=== PATIENT | female | born 1985 | race Caucasian/White ===

== ENCOUNTER 2017-03-16 18:45 | Inpatient (IN) | payer OTHER ==
[2017-03-16 18:51] VITALS: BMI 24.7
--- NOTE | 2017-03-16 18:51 | PDOC ---
Rapid Medical Evaluation Time Seen by Provider: 03/16/17 18:48 Medical Evaluation: Allergies Allergy/AdvReac Type Severity Reaction Status Date / Time No Known Allergies Allergy Verified 06/24/15 21:15 I have performed a brief in-person evaluation of this patient. The patient presents with a chief complaint of: abdominal pain with nausea and vomiting for a few hours Pertinent physical exam findings: LUQ and suprapubic TTP. No rebound, guarding or rigidity. I have ordered the following: hcg, UA The patient will proceed to the ED for further evaluation.
[2017-03-16 19:35] LABS: URINE APPEARANCE CLEAR; URINE BILIRUBIN NEGATIVE (NEGATIVE); URINE BLOOD NEGATIVE (NEGATIVE); URINE COLOR LTYELLOW; URINE GLUCOSE (UA) NEGATIVE (NEGATIVE); URINE KETONE 1+ (NEGATIVE); URINE LEUK ESTERASE NEGATIVE (NEGATIVE); URINE NITRITE NEGATIVE (NEGATIVE); URINE PROTEIN NEGATIVE (NEGATIVE); URINE UROBILINOGEN NEGATIVE E.U./dl (0.2-1.0)
[2017-03-16] MEDS ORDERED: ONDANSETRON 4 MG/2 ML VIAL ONE (19:55)
[2017-03-16] MEDS ORDERED: ONDANSETRON 4 MG/2 ML VIAL IVPUSH ONE (19:57)
[2017-03-16 20:02] LABS: MCH 25.3 pg (25.7-33.7); MCHC 31.6 g/dl (32.0-36.0); MEAN PLT VOLUME 8.2 fl (7.5-11.1); PLATELET COUNT 267 K/MM3 (134-434); RDW 15.3 % (11.6-15.6); WHITE BLOOD COUNT 16.2 K/mm3 (4.0-10.0)
[2017-03-16 20:30] LABS: ALBUMIN 4.1 g/dl (3.4-5.0); ALK PHOS 63 U/L (45-117); ANION GAP 11 (8-16); BILIRUBIN,TOTAL 0.3 mg/dL (0.2-1.0); CALCIUM 9.1 mg/dL (8.5-10.1); CO2 23 mmol/L (21-32); COCKROFT - GAULT 114.5885; CREATININE 0.7 mg/dL (0.55-1.02); GLUCOSE,RANDOM 102 mg/dL (74-106); SGOT/AST 13 U/L (15-37); SGPT/ALT 18 U/L (12-78); TOT PROT 7.3 g/dl (6.4-8.2)
--- NOTE | 2017-03-16 22:10 | PDOC ---
History of Present Illness - General Chief Complaint: Pain Stated Complaint: PAIN, ACUTE Time Seen by Provider: 03/16/17 18:48 History Source: Patient Exam Limitations: No Limitations - History of Present Illness Travel History: No Initial Comments: 03/16/17 22:06 32-year-old female presents to the emergency department with her sister complaining of RLQ abdominal discomfort. Pain is described as 8/10 sharp discomfort radiating to the left side with nausea/vomiting but denies fever/ chills, chest pain, shortness of breath, flank pains, urinary symptoms. There are no alleviating pain and the pain is exacerbated on touch. last meal: x8h ago Timing/Duration: reports: intermittent Abdominal Pain Onset Location: reports: RLQ, LLQ Pain Radiation: reports: no radiation Past History - Past Medical History Allergies/Adverse Reactions: Allergies Allergy/AdvReac Type Severity Reaction Status Date / Time No Known Allergies Allergy Verified 03/16/17 18:50 Home Medications: Ambulatory Orders NK [No Known Home Medication] 03/16/17 Asthma: No Cancer: No Cardiac Disorders: No Diabetes: No HTN: No Seizures: No Thyroid Disease: No - Psycho/Social/Smoking Cessation Hx Suicidal Ideation: No Smoking History: Never smoked Have you smoked in the past 12 months: No Information on smoking cessation initiated: No Hx Alcohol Use: No Drug/Substance Use Hx: No Hx Substance Use Treatment: No Review of Systems - Review of Systems Able to Perform ROS?: Yes Comments:: 03/16/17 22:08 CONSTITUTIONAL: Absent: fever, chills, diaphoresis, generalized weakness, malaise, loss of appetite HEENT: Absent: rhinorrhea, nasal congestion, throat pain, throat swelling, difficulty swallowing, mouth swelling, ear pain, eye pain, visual Changes CARDIOVASCULAR: Absent: chest pain, loss of consciousness, palpitations, irregular heart rate, peripheral edema RESPIRATORY: Absent: cough, shortness of breath, dyspnea with exertion, orthopnea, wheezing, stridor, hemoptysis GASTROINTESTINAL: +RLQ/LLQ pain Absent: abdominal distension, nausea, vomiting, diarrhea, constipation, melena, hematochezia GENITOURINARY: Absent: dysuria, frequency, urgency, hesitancy, hematuria, flank pain, genital pain MUSCULOSKELETAL: Absent: myalgia, arthralgia, joint swelling SKIN: Absent: rash, itching, pallor HEMATOLOGIC/IMMUNOLOGIC: Absent: easy bleeding, easy bruising, lymphadenopathy, frequent infections ENDOCRINE: Absent: unexplained weight gain, unexplained weight loss, heat intolerance, cold intolerance NEUROLOGIC: Absent: headache, focal weakness or paresthesias, dizziness, unsteady gait, seizure, mental status changes, bladder or bowel incontinence PSYCHIATRIC: Absent: anxiety, depression, suicidal or homicidal ideation, hallucinations. Is the patient limited Kinyarwanda proficient: No *Physical Exam - Vital Signs Last Vital Signs Temp Pulse Resp BP Pulse Ox 97.9 F 70 18 126/80 100 03/16/17 18:46 03/16/17 18:46 03/16/17 18:46 03/16/17 18:46 03/16/17 18:46 - Physical Exam Comments: 03/16/17 22:09 GENERAL: Well developed, well nourished. Awake and alert. No acute distress. HEENT: Normocephalic, atraumatic. PERRLA, EOMI. No conjunctival pallor. Sclera are non- icteric. Moist mucous membranes. Oropharynx is clear. NECK: Supple. Full ROM. No JVD. Carotid pulses 2+ and symmetric, without bruits. No thyromegaly. No lymphadenopathy. CARDIOVASCULAR: Regular rate and rhythm. No murmurs, rubs, or gallops. Distal pulses are 2+ and symmetric. PULMONARY: No evidence of respiratory distress. Lungs clear to auscultation bilaterally. No wheezing, rales or rhonchi. ABDOMINAL: +RLQ>LLQ pain on light palp Soft. Non-distended. No rebound or guarding. No organomegaly. Normoactive bowel sounds. MUSCULOSKELETAL Normal range of motion at all joints. No bony deformities or tenderness. No CVA tenderness. EXTREMITIES: No cyanosis. No clubbing. No edema. No calf tenderness. SKIN: Warm and dry. Normal capillary refill. No rashes. No jaundice. NEUROLOGICAL: Alert, awake, appropriate. Cranial nerves 2-12 intact. No deficits to light touch and temperature in face, upper extremities and lower extremities. No motor deficits in the in face, upper extremities and lower extremities. Normoreflexic in the upper and lower extremities. Normal speech. Toes are down- going bilaterally. Gait is normal without ataxia. PSYCHIATRIC: Cooperative. Good eye contact. Appropriate mood and affect. ED Treatment Course - LABORATORY CBC & Chemistry Diagram: 03/16/17 19:47 03/16/17 19:47 - ADDITIONAL ORDERS Additional order review: Laboratory Results 03/16/17 03/16/17 19:47 19:00 Sodium 139 Potassium 3.6 Chloride 105 Carbon Dioxide 23 Anion Gap 11 BUN 11 Creatinine 0.7 Creat Clearance w eGFR > 60 Random Glucose 102 D Calcium 9.1 Total Bilirubin 0.3 AST 13 L ALT 18 Alkaline Phosphatase 63 Total Protein 7.3 Albumin 4.1 Lipase 139 Urine Color Ltyellow Urine Appearance Clear Urine pH 6.0 Urine Protein Negative Urine Glucose (UA) Negative Urine Ketones 1+ H Urine Blood Negative Urine Nitrite Negative Urine Bilirubin Negative Urine Urobilinogen Negative Ur Leukocyte Esterase Negative Urine HCG, Qual Negative 03/16/17 19:47 RBC 4.88 D MCV 80.0 MCHC 31.6 L RDW 15.3 MPV 8.2 Neutrophils % Y Lymphocytes % Y - RADIOLOGY Radiology Studies Ordered: Category Date Time Status ABDOMEN & PELVIS CT WITH CONTR [CT] Stat CT Scan 03/16/17 21:00 Ordered - Medications Given in the ED: ED Medications Discontinued Medications Generic Name Dose Route Start Last Admin Trade Name Freq PRN Reason Stop Dose Admin Ondansetron HCl 4 mg 03/16/17 19:57 03/16/17 19:57 Zofran Injection IVPUSH 03/16/17 19:58 4 mg NOW ONE Administration Progress Note - Progress Note Progress Note: 0001hrs: Called DR. Luis New/surgery injection molding engineer 0018hrs: Spoke to Dr. Reeves/surgery injection molding engineer/ advise to admit to hospitalist. Surgery will be done in the am *DC/Admit/Observation/Transfer Diagnosis at time of Disposition: Acute appendicitis Qualifiers: Acute appendicitis type: with localized peritonitis Qualified Code(s): K35.3 - Acute appendicitis with localized peritonitis - Discharge Dispostion Condition at time of disposition: Guarded Admit: Yes
[2017-03-16 22:15] LABS: PLATELET ESTIMATE ADEQUATE (NORMAL)
[2017-03-17] MEDS ORDERED: CEFAZOLIN 1 GM in DEXTROSE 5%-WATER - 50 ML IVPB ONE (00:15)
[2017-03-17] MEDS ORDERED: SODIUM CHLORIDE 1,000 ML IV STA (00:16)
[2017-03-17] MEDS ORDERED: METRONIDAZOLE 500 MG PREMIXED 100 ML IVPB ONE (00:16)
[2017-03-17] MEDS ORDERED: PIPERACILLIN/TAZOB 3.375 GM 3.375 GM in DEXTROSE 5%-WATER - 50 ML IVPB ONE (00:18)
[2017-03-17] MEDS ORDERED: morphine CARPU-JECT 2 MG/1 ML DISP.SYRIN IVPUSH PRN (00:42)
--- NOTE | 2017-03-17 00:50 | PDOC ---
*Physical Exam - Vital Signs Last Vital Signs Temp Pulse Resp BP Pulse Ox 97.9 F 70 18 126/80 100 03/16/17 18:46 03/16/17 18:46 03/16/17 18:46 03/16/17 18:46 03/16/17 18:46 ED Treatment Course - LABORATORY CBC & Chemistry Diagram: 03/16/17 19:47 03/16/17 19:47 - ADDITIONAL ORDERS Additional order review: Laboratory Results 03/16/17 03/16/17 19:47 19:00 Sodium 139 Potassium 3.6 Chloride 105 Carbon Dioxide 23 Anion Gap 11 BUN 11 Creatinine 0.7 Creat Clearance w eGFR > 60 Random Glucose 102 D Calcium 9.1 Total Bilirubin 0.3 AST 13 L ALT 18 Alkaline Phosphatase 63 Total Protein 7.3 Albumin 4.1 Lipase 139 Urine Color Ltyellow Urine Appearance Clear Urine pH 6.0 Ur Specific [place] 1.025 Urine Protein Negative Urine Glucose (UA) Negative Urine Ketones 1+ H Urine Blood Negative Urine Nitrite Negative Urine Bilirubin Negative Urine Urobilinogen Negative Ur Leukocyte Esterase Negative Urine HCG, Qual Negative 03/16/17 19:47 RBC 4.88 D MCV 80.0 MCHC 31.6 L RDW 15.3 MPV 8.2 Neutrophils % 90.0 H Lymphocytes % 5.0 L D Monocytes % 1.0 L D Basophils % 1.0 D - Medications Given in the ED: ED Medications Discontinued Medications Generic Name Dose Route Start Last Admin Trade Name Freq PRN Reason Stop Dose Admin Ondansetron HCl 4 mg 03/16/17 19:57 03/16/17 19:57 Zofran Injection IVPUSH 03/16/17 19:58 4 mg NOW ONE Administration Medical Decision Making - Medical Decision Making 03/17/17 00:49 agree with care from MICKEY Mancilla *DC/Admit/Observation/Transfer Diagnosis at time of Disposition: Acute appendicitis Qualifiers: Acute appendicitis type: with localized peritonitis Qualified Code(s): K35.3 - Acute appendicitis with localized peritonitis - Discharge Dispostion Condition at time of disposition: Guarded
--- NOTE | 2017-03-17 01:04 | PN ---
<Rhonda Martin - Last Filed: 03/17/17 01:03> Teaching Attending Note Name of Resident: Rene Berman ATTENDING PHYSICIAN STATEMENT I saw and evaluated the patient. I reviewed the resident's note and discussed the case with the resident. I agree with the resident's findings and plan as documented. SUBJECTIVE: OBJECTIVE: ASSESSMENT AND PLAN: <Palmer Lindseyke - Last Filed: 03/17/17 01:30> Teaching Attending Note ATTENDING PHYSICIAN STATEMENT I saw and evaluated the patient. I reviewed the resident's note and discussed the case with the resident. I agree with the resident's findings and plan as documented. SUBJECTIVE: The patient is a 32-year-old female with no past medical history who presented to the emergency complaining of right lower quadrant abdominal pain. The patient described her pain as 9/10 in severity, sharp, and radiating to the left side with associated nausea/vomiting but denied any fever/chills, chest pain, shortness of breath, flank pains, or urinary symptoms. OBJECTIVE: Last Vital Signs 3 Temp Pulse Resp BP Pulse Ox 97.9 F 70 18 126/80 100 03/16/17 18:46 03/16/17 18:46 03/16/17 18:46 03/16/17 18:46 03/16/17 18:46 Physical Exam: GEN: NAD HEENT: NCAT, PERRL CARD: RRR, S1 S2 RESP: CTAB ABD: (+) Tenderness of McBurneys point on palpation , BWS x4 EXT: - CCE Labs: CBCD 3 WBC 16.2 K/mm3 (4.0-10.0) H D 03/16/17 19:47 RBC 4.88 M/mm3 (3.60-5.2) D 03/16/17 19:47 Hgb 12.4 GM/dL (10.7-15.3) D 03/16/17 19:47 Hct 39.1 % (32.4-45.2) D 03/16/17 19:47 MCV 80.0 fl (80-96) 03/16/17 19:47 MCHC 31.6 g/dl (32.0-36.0) L 03/16/17 19:47 RDW 15.3 % (11.6-15.6) 03/16/17 19:47 Plt Count 267 K/MM3 (134-434) D 03/16/17 19:47 MPV 8.2 fl (7.5-11.1) 03/16/17 19:47 CMP 3 Sodium 139 mmol/L (136-145) 03/16/17 19:47 Potassium 3.6 mmol/L (3.5-5.1) 03/16/17 19:47 Chloride 105 mmol/L (98-107) 03/16/17 19:47 Carbon Dioxide 23 mmol/L (21-32) 03/16/17 19:47 Anion Gap 11 (8-16) 03/16/17 19:47 BUN 11 mg/dL (7-18) 03/16/17 19:47 Creatinine 0.7 mg/dL (0.55-1.02) 03/16/17 19:47 Creat Clearance w eGFR > 60 (>60) 03/16/17 19:47 Calcium 9.1 mg/dL (8.5-10.1) 03/16/17 19:47 Total Bilirubin 0.3 mg/dL (0.2-1.0) 03/16/17 19:47 AST 13 U/L (15-37) L 03/16/17 19:47 ALT 18 U/L (12-78) 03/16/17 19:47 Alkaline Phosphatase 63 U/L (45-117) 03/16/17 19:47 Total Protein 7.3 g/dl (6.4-8.2) 03/16/17 19:47 Albumin 4.1 g/dl (3.4-5.0) 03/16/17 19:47 Imaging: EXAM#: TYPE/EXAM: RESULT: [id number] CT/ABDOMEN PELVIS CT WITH CONTR Abdominal pain. Rule out appendicitis CT scan of the abdomen and pelvis following oral and intravenous contrast. Coronal and sagittal reformatted images were obtained 80 cc of Omnipaque 350 was intravenously injected Comparison: None available Visualized lung base appears unremarkable and the heart is within normal limits in size. Evaluation of the liver, spleen, pancreas, gallbladder, both adrenal glands and both kidneys appear unremarkable. Partially distended stomach without wall thickening. There is no evidence of small bowel obstruction. The appendix is thickened measuring 12 mm in AP dimension at its base with minimal surrounding stranding best visualized on the coronal reformatted images consistent with early acute appendicitis. No surrounding extraluminal air or abscess formation is identified. Normal stool burden in the colon without wall thickening. Normal size uterus. There is a small amount of free fluid in the cul -de-sac. Peripherally enhancing cystic density in the left adnexa measuring 2 x 1.1 cm likely representing a partially ruptured left ovarian cyst . Visualized osseous structures appear intact. Impression Thickening of the appendix measuring 12 mm in diameter at its base with minimal surrounding stranding, best visualized on the coronal reformatted images consistent with early acute appendicitis without evidence of perforation. No extraluminal air or abscess formation is identified. Peripheral enhancement of a cystic density in the left ovary/adnexa measuring 2 x 1.1 cm likely representing a partially ruptured left ovarian cyst with a small amount of free fluid in the cul-de -sac. Correlation with pelvis ultrasound could be obtained for further evaluation Reported By: Ace Villa MD 03/17/17 0000 ASSESSMENT AND PLAN: 32-year-old female with no past medical history who presented with right lower quadrant abdominal pain. Found to have early acute appendicitis on CT 1. Acute appendicitis - NPO - IVF - Type and screen - Coag - Surgical consult - Zosin - ID for approval 2. DVT PPX- low risk - SCDs Admit to med surg. Documentation prepared by Aditya Lindsey, acting as bilingual medical receptionist for Dr. Rhonda Martin MD.
[2017-03-17] MEDS ORDERED: ONDANSETRON 4 MG/2 ML VIAL IVPUSH PRN ×2 (01:08→15:19)
[2017-03-17] MEDS ORDERED: LACTATED RINGERS SOLUTION 1,000 ML IV SCH ×2 (01:15→15:00)
--- NOTE | 2017-03-17 01:49 | HP ---
CHIEF COMPLAINT: PCP: HISTORY OF PRESENT ILLNESS: 32YF with no sig PMH presents to ED with c/o of abdominal pain. bilateral lower abdominal sharp pain started yesterday afternoon at approximatly 3pm,pain is constant and progressive 8/10 radating and Moved to LUQ. associated symptoms reports vomited NBNB x4, 2 in ED. never had marcus type of pain before. she also complains of chills but no fevers. no sick contacts. She denies fever, diaphoresis, generalized weakness. She denies chest pain, shortness of breath, cough She denies diarrhea, dysuria, hematuria, urinary frequency and urgency, flank pain, vaginal discharge/vaginal bleeding ER course was notable for: (1)zofran (2) CT abd (3)zosyn Recent Travel: no PAST MEDICAL HISTORY: no PAST SURGICAL HISTORY: no Social History: Smoking:no Alcohol:no Drugs: no Family History: non contributory Allergies No Known Allergies Allergy (Verified 03/16/17 18:50) HOME MEDICATIONS: Home Medications Medication Instructions Recorded NK [No Known Home Medication] 03/16/17 REVIEW OF SYSTEMS CONSTITUTIONAL: chills, Absent: fever, diaphoresis, generalized weakness, malaise, loss of appetite, weight change HEENT: Absent: rhinorrhea, nasal congestion, throat pain, throat swelling, difficulty swallowing, mouth swelling, ear pain, eye pain, visual changes CARDIOVASCULAR: Absent: chest pain, syncope, palpitations, irregular heart rate, lightheadedness , peripheral edema RESPIRATORY: Absent: cough, shortness of breath, dyspnea with exertion, orthopnea, wheezing, stridor, hemoptysis GASTROINTESTINAL:bdominal pain,nausea, vomiting, Absent: a abdominal distension, diarrhea, constipation, melena, hematochezia GENITOURINARY: Absent: dysuria, frequency, urgency, hesitancy, hematuria, flank pain, genital pain MUSCULOSKELETAL: Absent: myalgia, arthralgia, joint swelling, back pain, neck pain SKIN: Absent: rash, itching, pallor HEMATOLOGIC/IMMUNOLOGIC: Absent: easy bleeding, easy bruising, lymphadenopathy, frequent infections ENDOCRINE: Absent: unexplained weight gain, unexplained weight loss, heat intolerance, cold intolerance NEUROLOGIC: Absent: headache, focal weakness or paresthesias, dizziness, unsteady gait, seizure, mental status changes, bladder or bowel incontinence PSYCHIATRIC: Absent: anxiety, depression, suicidal or homicidal ideation, hallucinations. PHYSICAL EXAMINATION GENERAL: Awake, alert, and fully oriented, in no acute distress. sitting up comfortably HEAD: Normal with no signs of trauma. EYES: extraocular movements intact, sclera anicteric, conjunctiva clear. No lid lag. EARS, NOSE, THROAT: Ears normal, nares patent, oropharynx clear without exudates. Moist mucous membranes. NECK: Normal range of motion, supple without lymphadenopathy, JVD, or masses. LUNGS: Breath sounds equal, clear to auscultation bilaterally. No wheezes, and no crackles. No accessory muscle use. HEART: Regular rate and rhythm, normal S1 and S2 without murmur, rub or gallop. ABDOMEN: Soft, mild tenderness lower abd, not distended, normoactive bowel sounds, no guarding, no rebound, no masses. obturator sign negative. No hepatomegaly or splenomegaly. MUSCULOSKELETAL: Normal range of motion at all joints. No bony deformities or tenderness. No CVA tenderness. LOWER EXTREMITIES: 2+ pulses, warm, well-perfused. No calf tenderness. No peripheral edema. NEUROLOGICAL: Cranial nerves II-XII intact. Normal speech. Normal gait. PSYCHIATRIC: Cooperative. Good eye contact. Appropriate mood and affect. SKIN: Warm, dry, normal turgor, no rashes or lesions noted, normal capillary refill. Impression Thickening of the appendix measuring 12 mm in diameter at its base with minimal surrounding stranding, best visualized on the coronal reformatted images consistent with early acute appendicitis without evidence of perforation. No extraluminal air or abscess formation is identified. Peripheral enhancement of a cystic density in the left ovary/adnexa measuring 2 x 1.1 cm likely representing a partially ruptured left ovarian cyst with a small amount of free fluid in the cul-de -sac. Correlation with pelvis ultrasound could be obtained for further evaluation ASSESSMENT/PLAN: 32YF with no sig PMH presents to ED with c/o of abdominal pain. found to have acute appendicitis on ct scan. 1. Acute appendicitis - Type and screen - Coag - Type and screen - Surgical consult- presumptive suregery in am - continue Zosin - ID consult 2. DVT PPX- low risk - SCDs FEN NPU replete electrolyte as needed IV LR @ 100cc/hr Dispo: med surg presumptive surgery in am. Visit type - Emergency Visit Emergency Visit: Yes ED Registration Date: 03/17/17 Care time: The patient presented to the Emergency Department on the above date and was hospitalized for further evaluation of their emergent condition. - New Patient This patient is new to me today: Yes Date on this admission: 03/17/17 - Critical Care Critical Care patient: No
[2017-03-17] MEDS: PIPERACILLIN/TAZOB 3.375 GM/50 ML PRE-DOCKED IVPB ONE ×2 (06:47→15:45)
[2017-03-17 07:34] LABS: BASOPHIL 0.3 % (0-2.0); EOSINOPHIL 0.4 % (0-4.5); MCH 26.2 pg (25.7-33.7); MCHC 33.1 g/dl (32.0-36.0); MEAN CELL VOLUME 79.3 fl (80-96); MEAN PLT VOLUME 8.3 fl (7.5-11.1); NEUTROPHILS 76.6 % (42.8-82.8); PLATELET COUNT 235 K/MM3 (134-434); RDW 15.2 % (11.6-15.6); WHITE BLOOD COUNT 11.9 K/mm3 (4.0-10.0)
[2017-03-17 07:51] LABS: ALBUMIN 3.4 g/dl (3.4-5.0); ALK PHOS 56 U/L (45-117); ANION GAP 10 (8-16); BILIRUBIN,TOTAL 0.7 mg/dL (0.2-1.0); CALCIUM 8.4 mg/dL (8.5-10.1); CO2 25 mmol/L (21-32); CREATININE 0.7 mg/dL (0.55-1.02); GLUCOSE,RANDOM 84 mg/dL (74-106); MAGNESIUM 2.4 mg/dL (1.8-2.4); PHOSPHOROUS 3.8 mg/dL (2.5-4.9); SGOT/AST 10 U/L (15-37); SGPT/ALT 15 U/L (12-78); TOT PROT 6.2 g/dl (6.4-8.2)
[2017-03-17 08:11] LABS: INR 1.25 (0.82-1.09); PROTHROMBIN TIME (PATIENT) 13.8 SEC (9.98-11.88)
--- NOTE | 2017-03-17 12:37 | EKG ---
Test Reason : Blood Pressure : / mmHG Vent. Rate : 073 BPM Atrial Rate : 073 BPM P-R Int : 184 ms QRS Dur : 076 ms QT Int : 376 ms P-R-T Axes : 047 036 015 degrees QTc Int : 414 ms NORMAL SINUS RHYTHM NORMAL ECG NO PREVIOUS ECGS AVAILABLE Confirmed by MAINE ANDREW MD ([id number]) on 03/17/2017 12:36:29 PM Referred By: DOUG ARRIAGA Confirmed By:MAINE ANDREW MD
[2017-03-17] MEDS ORDERED: PROPOFOL 20 ML ONE (13:31)
[2017-03-17] MEDS ORDERED: ROCURONIUM BROMIDE 50 MG/5 ML VIAL ONE (13:31)
[2017-03-17] MEDS ORDERED: MIDAZOLAM HCL 2 MG/2 ML SINGLE DOSE VIAL ONE (13:31)
[2017-03-17] MEDS ORDERED: SUCCINYLCHOLINE CHLORIDE 200 MG/10 ML VIAL ONE (13:31)
--- NOTE | 2017-03-17 13:55 | PN ---
Progress Note (short form) - Note Progress Note: surgery pt seen and examined. full consult dictated. 32f with abd pain, n/v, leukocytosis and ct showing acute appendicitis. Pt admitted with iv zosyn and feels better. on exam pt has localized rlq tenderness with rebound. Plan- clinically acute appendicitis with localized peritonitis. will proceed with surgery. agree with zosyn but may need to change to rocephin/flagyl because of abx restrictions.
[2017-03-17] MEDS ORDERED: KETOROLAC TROMETHAMINE 30 MG/1 ML VIAL ONE (14:01)
[2017-03-17] MEDS ORDERED: DEXAMETHASONE SOD PHOSPHATE 4 MG/1 ML VIAL ONE (14:01)
[2017-03-17] MEDS ORDERED: NEOSTIGMINE METHYLSULFATE 0.5 MG/ML - 10 ML MDV ONE (14:29)
[2017-03-17] MEDS ORDERED: GLYCOPYRROLATE 0.2 MG/1 ML VIAL ONE (14:29)
--- NOTE | 2017-03-17 14:36 | OP ---
Operative Note - Note: Operative Date: 03/17/17 Pre-Operative Diagnosis: acute appendicitis Operation: laparoscopic appendectomy, lavage Findings: thickened, inflamed, nonperforated appendix Post-Operative Diagnosis: Same as Pre-op Surgeon: Omar Reeves Anesthesiologist/LATHE PULLER: German Grayson Anesthesia: General Specimens Removed: appendix Estimated Blood Loss (mls): 10
[2017-03-17] MEDS ORDERED: ACETAMINOPHEN 325 MG TABLET (FP) PO PRN (14:45)
[2017-03-17] MEDS ORDERED: oxyCODONE HCL 5 MG TABLET PO PRN (14:45)
[2017-03-17] MEDS ORDERED: morphine CARPU-JECT 10 MG/1 ML DISP.SYRIN IVPB PRN (14:45)
[2017-03-17] MEDS ORDERED: KETOROLAC TROMETHAMINE 30 MG/1 ML VIAL IVPUSH PRN (14:45)
[2017-03-17] MEDS ORDERED: PROMETHAZINE HCL 25 MG/1 ML VIAL IVPUSH PRN (14:47)
[2017-03-17] MEDS ORDERED: ONDANSETRON 4 MG/2 ML VIAL ONE (14:54)
[2017-03-17] MEDS ORDERED: PIPERACILLIN/TAZOB 3.375 GM 50 ML IVPB ONE (15:30)
--- NOTE | 2017-03-17 15:42 | PN ---
Physical Exam: SUBJECTIVE: Patient seen and examined prior to lap appendectomy. She said pain was under control and waiting for surgery. No fever, chills, n/v, acute abd pain. OBJECTIVE: Vital Signs Period Temp Pulse Resp BP Sys/Pompa Pulse Ox Last 24 Hr 98.1 F-99.8 F 68-80 16-18 97-109/50-65 98-99 GENERAL: The patient is awake, alert, and fully oriented, in no acute distress. LUNGS: Breath sounds equal, clear to auscultation bilaterally, no wheezes, no crackles, no accessory muscle use. HEART: Regular rate and rhythm, S1, S2 without murmur, rub or gallop. ABDOMEN (Prior to procedure): Soft, nondistended, normoactive bowel sounds, rebound tenderness in RLQ, +rovsing sign but -obutorator sign EXTREMITIES: no edema. CBCD WBC 11.9 K/mm3 (4.0-10.0) H 03/17/17 06:30 RBC 4.38 M/mm3 (3.60-5.2) 03/17/17 06:30 Hgb 11.5 GM/dL (10.7-15.3) 03/17/17 06:30 Hct 34.8 % (32.4-45.2) 03/17/17 06:30 MCV 79.3 fl (80-96) L 03/17/17 06:30 MCHC 33.1 g/dl (32.0-36.0) 03/17/17 06:30 RDW 15.2 % (11.6-15.6) 03/17/17 06:30 Plt Count 235 K/MM3 (134-434) 03/17/17 06:30 MPV 8.3 fl (7.5-11.1) 03/17/17 06:30 CMP Sodium 142 mmol/L (136-145) 03/17/17 06:30 Potassium 3.7 mmol/L (3.5-5.1) 03/17/17 06:30 Chloride 107 mmol/L (98-107) 03/17/17 06:30 Carbon Dioxide 25 mmol/L (21-32) 03/17/17 06:30 Anion Gap 10 (8-16) 03/17/17 06:30 BUN 7 mg/dL (7-18) D 03/17/17 06:30 Creatinine 0.7 mg/dL (0.55-1.02) 03/17/17 06:30 Creat Clearance w eGFR > 60 (>60) 03/17/17 06:30 Calcium 8.4 mg/dL (8.5-10.1) L 03/17/17 06:30 Total Bilirubin 0.7 mg/dL (0.2-1.0) D 03/17/17 06:30 AST 10 U/L (15-37) L D 03/17/17 06:30 ALT 15 U/L (12-78) 03/17/17 06:30 Alkaline Phosphatase 56 U/L (45-117) 03/17/17 06:30 Total Protein 6.2 g/dl (6.4-8.2) L 03/17/17 06:30 Albumin 3.4 g/dl (3.4-5.0) 03/17/17 06:30 Active Medications Generic Name Dose Route Start Last Admin Trade Name Freq PRN Reason Stop Dose Admin Acetaminophen 650 mg 03/17/17 14:45 Tylenol - PO Q4H PRN FEVER OR PAIN Enoxaparin Sodium 40 mg 03/18/17 10:00 Lovenox - SQ DAILY DARIUSZ Pantoprazole Sodium 100 mls @ 200 mls/hr 03/18/17 10:00 Protonix 40mg Ivpb (Pre-Docked) IVPB DAILY DARIUSZ Lactated Ringer's 1,000 mls @ 75 mls/hr 03/17/17 15:00 Lactated Ringers Solution IV ASDIR DARIUSZ Piperacillin Sod/Tazobactam Sod 50 mls @ 100 mls/hr 03/17/17 21:00 Zosyn 3.375gm Ivpb (Pre-Docked) IVPB Q6H-IV DARIUSZ Protocol Piperacillin Sod/Tazobactam Sod 50 mls @ 100 mls/hr 03/17/17 15:30 Zosyn 3.375gm Ivpb (Pre-Docked) IVPB 03/17/17 15:59 ONCE ONE Protocol Lactated Ringer's 1,000 mls @ 100 mls/hr 03/17/17 15:19 Lactated Ringers Solution IV ASDIR DARIUSZ Ketorolac Tromethamine 30 mg 03/17/17 14:45 Toradol Injection - IVPUSH 03/17/17 22:46 Q8H PRN PAIN Morphine Sulfate 8 mg 03/17/17 14:45 Morphine Injection - IVPB Q3H PRN PAIN Ondansetron HCl 4 mg 03/17/17 15:19 Zofran Injection IVPUSH Q8H PRN NAUSEA Oxycodone HCl 7.5 mg 03/17/17 14:45 Roxicodone - PO Q4H PRN PAIN IMAGING CT abd on 03/17: early acute appendicitis and partially rupture L ovarian cyst. ASSESSMENT/PLAN: 32 yo F admitted to med-surg for acute appendicitis. Acute appendicitis, uncomplicated - s/p lap cholecystectomy - Lactate Ringers - Cont. zosyn - Morphine and ketorolac for pain control - Zofran for n/v FEN - LR - Lytes normal - Regular diet Prophylaxis - DVT: lovenox - GI: protonix Dispo - Discharge tomorrow Visit type - Emergency Visit Emergency Visit: No - New Patient This patient is new to me today: No - Critical Care Critical Care patient: No
--- NOTE | 2017-03-17 16:45 | CONSULT ---
Consult Consult Specialty:: infectious diseases Reason for Consultation:: appendicitis - History of Present Illness Chief Complaint: abd pain History of Present Illness: 32 y/o female with no specific medical problem was admitted with abd pain and she was worked up and found to have appendicitis patient was evaluated by surgery and taken to the operating room and now is post op main issue now is pain patient had lap appendctomy done - History Source History Provided By: Patient, Medical Record Limitations to Obtaining History: Language Barrier - Past Medical History Rheumatology: Yes: Rheumatoid Arthritis (juvenile) - Past Surgical History Past Surgical History: Yes: None - Alcohol/Substance Use Hx Alcohol Use: No History of Substance Use: reports: None - Smoking History Smoking history: Never smoked Have you smoked in the past 12 months: No Home Medications - Allergies Allergies/Adverse Reactions: Allergies Allergy/AdvReac Type Severity Reaction Status Date / Time No Known Allergies Allergy Verified 03/16/17 18:50 - Home Medications Home Medications: Ambulatory Orders NK [No Known Home Medication] 03/16/17 Family Disease History - Family Disease History Family Disease History: Other: Father (prostate cancer) Review of Systems - Review of Systems Constitutional: reports: No Symptoms Eyes: reports: No Symptoms HENT: reports: No Symptoms Neck: reports: No Symptoms Cardiovascular: reports: No Symptoms Respiratory: reports: No Symptoms Gastrointestinal: reports: Abdominal Pain Genitourinary: reports: No Symptoms Neurological: reports: No Symptoms Endocrine: reports: No Symptoms Hematology/Lymphatic: reports: No Symptoms Psychiatric: reports: No Symptoms Physical Exam Vital Signs: Vital Signs Temperature 98.7 F 03/17/17 16:10 Pulse Rate 56 L 03/17/17 16:10 Respiratory Rate 18 03/17/17 16:10 Blood Pressure 97/60 03/17/17 16:10 O2 Sat by Pulse Oximetry (%) 100 03/17/17 16:10 Constitutional: Yes: Well Nourished, Mild Distress (post op) HENT: Yes: Atraumatic Neck: Yes: Supple, Trachea Midline Cardiovascular: Yes: Regular Rate and Rhythm Respiratory: Yes: Regular, CTA Bilaterally Gastrointestinal: Yes: Soft, Hypoactive Bowel Sounds, Other (surgical site looks good) Musculoskeletal: Yes: WNL Extremities: Yes: WNL Neurological: Yes: Alert, Oriented Psychiatric: Yes: Alert Labs: CBC, BMP 03/17/17 06:30 06/07/17 06:30 Imaging - Results Cat Scan: Report Reviewed, Image Reviewed Assessment/Plan acute appendicitis plan continue zosyn hydration rest as per surgery and primary team
--- NOTE | 2017-03-17 16:48 | PN ---
Teaching Attending Note Name of Resident: Michael Rahman ATTENDING PHYSICIAN STATEMENT I saw and evaluated the patient. I reviewed the resident's note and discussed the case with the resident. I agree with the resident's findings and plan as documented. SUBJECTIVE: Patient reports RLQ discomfort. OBJECTIVE: Vital Signs Period Temp Pulse Resp BP Sys/Pompa Pulse Ox Last 24 Hr 97.9 F-99.8 F 52-80 16-18 96-127/50-80 98-100 HEART: S1S2, RRR LUNGS: Clear ABDOMEN: Soft, non-tender, non-distended, normal BS EXTREMITIES: No edema ASSESSMENT AND PLAN: This is a 32-year-old woman with no significant history who presented to the ER with RLQ abdominal pain. 1. Acute appendicitis - s/p laparoscopic appendectomy today - On Zosyn - Expect discharge tomorrow
[2017-03-17] MEDS ORDERED: PIPERACILLIN/TAZOB 2.25 GM 2.25 GM in DEXTROSE 5%-WATER - 50 ML IVPB SCH (17:00)
[2017-03-17] MEDS: LACTATED RINGERS SOLUTION 1,000 ML IV SCH (17:26)
[2017-03-17] MEDS: PIPERACILLIN/TAZOB 2.25 GM 50 ML IVPB SCH (18:30)
--- NOTE | 2017-03-17 20:39 | CONS ---
DATE OF CONSULTATION: 03/17/2017 REASON FOR CONSULTATION: Acute appendicitis. This is an emergency room consultation and was requested by the emergency room physician. BRIEF HISTORY: This is a 32-year-old female, healthy, presented to [facility] with abdominal pain, nausea, and vomiting. She had an elevated white blood cell count, right lower quadrant tenderness, and a CT scan consistent with acute appendicitis. She was admitted to the hospital, sent to the floor, treated with Zosyn antibiotic and currently feels better. A surgical consultation was requested. PAST MEDICAL HISTORY: Negative. PAST SURGICAL HISTORY: Nil. SOCIAL HISTORY: Negative for alcohol, negative for tobacco. ALLERGIES: She has no known drug allergies. FAMILY HISTORY: Negative for malignancy in the immediate family. REVIEW OF SYSTEMS: General: Denies fatigue or malaise. Cardiac: No chest pain or palpitations. Respiratory: No shortness of breath or wheeze. Gastrointestinal: As in HPI. Denies diarrhea, denies blood in her stool, denies recent weight loss. Genitourinary: Denies dysuria. Musculoskeletal: Denies joint pain or joint swelling. Psychiatric: Denies hearing pressuring voices. PHYSICAL EXAMINATION: General: This is a well-developed, well-nourished, 32-year-old female in no distress. Vital signs: She is afebrile, has been since admission. HEENT: Head is normocephalic. Sclerae are anicteric. Neck: Supple. Chest: Clear. Abdomen: Soft. She has localized right lower quadrant tenderness with rebound. She has no surgical scar. She has no obvious hernias. Extremities: No edema. LABORATORY: Her white blood cell count is elevated at 16.2. After antibiotics, repeat was 11.9. Her chemistries are unremarkable. Her imaging is as in the HPI. ASSESSMENT: This is a 32-year-old female with right lower quadrant pain, right lower quadrant tenderness, rebound, leukocytosis, and a CT scan consistent with acute appendicitis. Clinically this is acute appendicitis with localized peritonitis. I agree with the choice of Zosyn antibiotic. I may have to change that to Rocephin and Flagyl because of antibiotic restrictions at [facility]. I will move in the direction of surgery. Risks and benefits of surgery have been explained to the patient in detail. These are including, but not limited to the possibility of conversion to open and the possibility of injury to viscera or bladder, the possibility of blood loss requiring blood transfusion, possibility of staple line dehiscence, possibility of infection, possibility of future hernia, possibility of future obstruction, plus a multitude of medical risks including but not limited to cardiac, neurologic, pulmonary and vascular complications, and even . The patient has also been offered medical management of appendicitis and declines. She prefers the more definitive nature of surgery with the likely decrease of future recurrence and the likely decreased length of hospital stay. DO DINESH APPLE/[id number]
[2017-03-17] MEDS ORDERED: PIPERACILLIN/TAZOB 3.375 GM 50 ML IVPB SCH (21:00)
[2017-03-18] MEDS: PIPERACILLIN/TAZOB 2.25 GM 50 ML IVPB SCH ×2 (02:06→09:53)
[2017-03-18 05:54] LABS: MCH 25.5 pg (25.7-33.7); MCHC 31.7 g/dl (32.0-36.0); MEAN CELL VOLUME 80.2 fl (80-96); MEAN PLT VOLUME 8.2 fl (7.5-11.1); PLATELET COUNT 263 K/MM3 (134-434); WHITE BLOOD COUNT 9.2 K/mm3 (4.0-10.0)
[2017-03-18] MEDS: LACTATED RINGERS SOLUTION 1,000 ML IV SCH (07:26)
--- NOTE | 2017-03-18 07:59 | PN ---
Progress Note (short form) - Note Progress Note: Post op day#1.S/P Lap cholecystectomy under GA uneventful.Patient stable.No any anesthesia related problem.Patient DC from the anesthesia care.
--- NOTE | 2017-03-18 09:28 | PN ---
Teaching Attending Note Name of Resident: Michael Rahman ATTENDING PHYSICIAN STATEMENT I saw and evaluated the patient. I reviewed the resident's note and discussed the case with the resident. I agree with the resident's findings and plan as documented. SUBJECTIVE: RLQ discomfort is less. OBJECTIVE: Vital Signs Period Temp Pulse Resp BP Sys/Pompa Pulse Ox Last 24 Hr 98 F-99.8 F 52-80 16-20 94-127/53-79 98-100 HEART: S1S2, RRR LUNGS: Clear ABDOMEN: Soft, non-tender, non-distended, normal BS EXTREMITIES: No edema ASSESSMENT AND PLAN: This is a 32-year-old woman with no significant history who presented to the ER with RLQ abdominal pain. 1. Acute appendicitis - s/p laparoscopic appendectomy 03/17 - On Zosyn - Ok for discharge today
[2017-03-18 10:00] VITALS: BP 102/60; PULSE 72; TEMP 99.1
[2017-03-18] MEDS ORDERED: ENOXAPARIN NA (PORCINE) 40 MG/0.4 ML DISP.SYRIN SQ SCH (10:00)
[2017-03-18] MEDS ORDERED: PANTOPRAZOLE SODIUM 100 ML IVPB SCH (10:00)
--- NOTE | 2017-03-18 10:31 | DS ---
Physical Exam: SUBJECTIVE: Patient stated slight pain at surgical sites but it's under control. No BM yet but urination is ok. No fever, chills, n/v, acute abd pain. OBJECTIVE: Vital Signs Period Temp Pulse Resp BP Sys/Pompa Pulse Ox Last 24 Hr 98 F-99.1 F 52-80 16-20 94-127/53-79 98-100 PHYSICAL EXAM GENERAL: The patient is awake, alert, and fully oriented, in no acute distress. LUNGS: Breath sounds equal, clear to auscultation bilaterally, no wheezes, no crackles, no accessory muscle use. HEART: Regular rate and rhythm, S1, S2 without murmur, rub or gallop. ABDOMEN: Soft, 3 clean surgical wounds,slight tenderness in RLQ, nondistended, normoactive bowel sounds, no guarding or rebound tenderness EXTREMITIES: no edema. LABS Laboratory Results - last 24 hr 03/18/17 05:35 WBC 9.2 RBC 4.18 Hgb 10.6 L Hct 33.6 MCV 80.2 MCHC 31.7 L RDW 15.0 Plt Count 263 MPV 8.2 HOSPITAL COURSE: Date of Admission:03/17/17 32 yo F admitted to med-surg for acute appendicitis. Today is po-op day 1 s/p lap cholecystectomy. She's been on Lactate Ringers, zosyn, Morphine and ketorolac for pain control and Zofran for n/v. No acute event overnight. Surgical wounds look clean and she's now in stable condition to be discharged home and follow up with Dr. Reeves in 2 weeks to remove surgical colleen. She' s advised to take motrin or tynelol for pain control and resume normal activities and avoid heavy lifting. Date of Discharge: 03/18/17 Minutes to complete discharge: 35 Discharge Summary Reason For Visit: ACUTE APPENDICITIS Condition: Stable - Instructions Diet, Activity, Other Instructions: Instruction for continuing care: You were admitted to the hospital for acute appendicitis. Dr. Reeves operated on you and took the inflamed appendix out. You are now in stable condition to be discharged home. After you leave the hospital, you must make an appointment with Dr. Reeves to remove the colleen. You also need to follow up with your primary doctor within a week. Take motrin or tynelol as needed for pain. You may resume normal activities. Do not lift heavy things for a month. Referrals: Omar Reeves MD [Staff Physician] - Disposition: HOME - Home Medications Comprehensive Discharge Medication List: Ambulatory Orders NK [No Known Home Medication] 03/16/17 This patient is new to me today: No Emergency Visit: No Critical Care patient: No - Discharge Referral Referred to [facility] Med P.C.: No
--- NOTE | 2017-03-18 18:36 | OP ---
DATE OF OPERATION: 03/17/2017 PREOPERATIVE DIAGNOSIS: Acute appendicitis, localized peritonitis. POSTOPERATIVE DIAGNOSIS: Acute appendicitis, localized peritonitis. PROCEDURE: Laparoscopic appendectomy and lavage. SURGEON: Omar Reeves DO MANAGER NURSING HOME: None. ANESTHESIOLOGIST: German Grayson MD (general) INTRAOPERATIVE FINDINGS: Thickened and inflamed, non-perforated appendix. DRAINS: None. BLOOD LOSS: 10 mL. DISPOSITION: Recovery room in stable condition. COMPLICATIONS: None. BRIEF HISTORY: This is a 32-year-old female who presented to [facility] with signs and symptoms of acute appendicitis with CT scan evidence to support that. She was admitted to the hospital, started on intravenous antibiotics, and presents now for surgery. DESCRIPTION OF PROCEDURE: The patient was placed in the supine position. After general anesthesia was initiated, the abdomen was prepped and draped in the sterile fashion, and a Silva catheter was inserted. Next, a vertical incision was made infraumbilical with scalpel. It was carried through the skin and subcutaneous tissue. Of note, the patient had already received Zosyn antibiotic and also had a ventral hernia above this incision, which was not addressed at the time of surgery. Next, the fascia was incised vertically. The peritoneum entered bluntly. A 0 Vicryl stitch was then placed across the fascial defect and used to secure the Felix trocar. Pneumoperitoneum was then created, followed by insertion of a 5-mm 30- degree laparoscope. Next, two 5-mm trocars were placed; 1 suprapubic with care to avoid injuring the bladder and 1 in the left lower quadrant lateral to the rectus muscle. At this point attention was turned towards the right lower quadrant. The appendix was seen. It was thick and inflamed, nonperforated. A window was made at the base. The LigaSure device was used to divide the mesoappendix with multiple welts. The EndoGIA Ultra purple-load 60-mm stapler was used to divide the appendix and a small portion of cecum. The staple line was inspected. It was intact with no bleeding, no breaks, and no sign of ischemia. At this point, the appendix was placed in a specimen bag, removed through the infraumbilical trocar site, and sent to pathology, marked as specimen. A limited lavage was done. All return was clear. Trocars were then removed under direct visualization. No bleeding was seen. Pneumoperitoneum was released and then fascia of the infraumbilical trocar site was then closed with multiple interrupted 0 Vicryl sutures. The 3 skin incisions were closed with colleen and Dermabond dressing was placed. DO DINESH APPLE/[id number] MTDD
--- NOTE | 2017-03-19 14:50 | PATH ---
Surgical Pathology Report Patient Name: JACKY FANG [facility]. Rec. #: [id number] /Age/Gender: 1985 (Age: 32) / F Account: [id number] Location: [address] [place] [address]/[facility] Taken: 03/18/2017 Received: 03/18/2017 Reported: 03/19/2017 Physicians: Israel Walker M.D. Specimen(s) Received APPENDIX Clinical History Acute appendicitis Final Diagnosis APPENDIX, APPENDECTOMY: ACUTE APPENDICITIS AND PERIAPPENDICITIS. Electronically Signed Jim Smalls M.D. Gross Description Received in formalin, labeled "appendix," is a 6.5 cm. in length vermiform appendix with a stapled margin of resection and moderate attached fat. The serosa is chen-montalvo and smooth. Sectioning reveals a focally dilated lumen containing pus. The wall of the appendix averages 0.1 cm. in thickness. Chiropractor Assistant sections are submitted in one cassette. 03/18/2017 [facility]03/18/2017
== END 2017-03-18 14:31 | disposition home or self-care (01) | DRG 225 ==
LOC: JER 18:45 → JERBED 03-17 00:23 → J5S 03-17 03:16
PROVIDERS: ADMIT Internal Medicine; ATTEND Internal Medicine
PROC: 0DTJ4ZZ Resection of Appendix, Percutaneous Endoscopic Approach (ICD-10-PCS; principal; 2017-03-17 12:00)
DX: K35.3 Acute appendicitis with localized peritonitis (principal); N83.292 Other ovarian cyst, left side; M08.00 Unspecified juvenile rheumatoid arthritis of unspecified site
CPT/HCPCS: 36415; 74177-TC; 80053; 81003; 83690; 83735; 84100; 84703; 85025; 85027; 85610; 85730; 86850; 86900; 86901; 88304-TC; 93005; 93010; 94010; 94760; 97116-GP; 97161-GP; 99285-25

== ENCOUNTER 2019-01-10 17:20 | Inpatient (IN) | payer OTHER ==
[2019-01-10 17:49] VITALS: BMI 28.1
[2019-01-10] MEDS ORDERED: LIDOCAINE HCL 1% PRESERVATIVE FREE - 30ML VIAL ONE (18:03)
[2019-01-10] MEDS ORDERED: WITCH HAZEL 50% (TUCKS) 40 PAD/JAR PAD TP PRN (18:24)
[2019-01-10] MEDS ORDERED: BISACODYL 10 MG SUPP.RECT RC PRN (18:24)
[2019-01-10] MEDS ORDERED: IBUPROFEN 600 MG TABLET (FP) PO PRN (18:24)
[2019-01-10] MEDS ORDERED: METHYLERGONOVINE MALEATE 0.2 MG/1 ML AMP IM PRN (18:24)
[2019-01-10] MEDS ORDERED: ACETAMINOPHEN 325 MG TABLET (FP) PO PRN (18:24)
[2019-01-10] MEDS ORDERED: BENZOCAINE 20% 57 GM BOTTLE TP PRN (18:24)
[2019-01-10] MEDS ORDERED: BENZOCAINE 28 GM HEMORRHOIDAL OINTMENT TP PRN (18:24)
[2019-01-10] MEDS ORDERED: OXYTOCIN 10 UNITS/ML VIAL IM ONE (18:26)
[2019-01-10] MEDS ORDERED: METHYLERGONOVINE MALEATE 0.2 MG/1 ML AMP IM ONE (18:26)
--- NOTE | 2019-01-10 18:36 | HP ---
Past Medical History - Primary Care Physician PCP:: Toribio Rivera - Admission Chief Complaint: 39 weeks , labor History of Present Illness: 33 yo f 39 weeks, in labor , came to L&D fully dilated , had spontaneous rom, clear fluid , and had vaginal delivery with second degree laceration History Source: Patient Limitations to Obtaining History: Language Barrier - Past Medical History ...: 2 ...Para: 1 ...Term: 1 ...: 0 ...Spon : 0 ...Induced : 0 ...Multiple Gestation: 0 ...LMP: 04/12/18 ... Weeks Gestation by Dates: 39.0 ...EDC by Dates: 01/17/19 ...EDC by Sono: 01/17/19 - Past Surgical History Past Surgical History: Yes: None Hx Myomectomy: No Hx Transabdominal Cerclage: No - Smoking History Smoking history: Never smoked Have you smoked in the past 12 months: No - Alcohol/Substance Use Hx Alcohol Use: No History of Substance Use: reports: None - Social History Usual Living Arrangement: Yes: With Spouse History of Recent Travel: No Home Medications - Allergies Allergies/Adverse Reactions: Allergies Allergy/AdvReac Type Severity Reaction Status Date / Time No Known Allergies Allergy Verified 01/10/19 17:37 - Home Medications Home Medications: Ambulatory Orders Vitamins (Sjr) - 1 tab PO DAILY 12/27/18 Family Disease History - Family Disease History Family Disease History: Other: Father (prostate cancer) Review of Systems - Review of Systems Constitutional: reports: No Symptoms Eyes: reports: No Symptoms HENT: reports: No Symptoms Neck: reports: No Symptoms Cardiovascular: reports: No Symptoms Respiratory: reports: No Symptoms Gastrointestinal: reports: No Symptoms Genitourinary: reports: No Symptoms Breasts: reports: No Symptoms Reported Musculoskeletal: reports: No Symptoms Integumentary: reports: No Symptoms Neurological: reports: No Symptoms Endocrine: reports: No Symptoms Hematology/Lymphatic: reports: No Symptoms Psychiatric: reports: No Symptoms Physical Exam - Maternity Vital Signs: Vital Signs Temperature 97.3 F L 01/10/19 17:20 Pulse Rate 65 01/10/19 18:15 Respiratory Rate 18 01/10/19 18:15 Blood Pressure 108/62 01/10/19 18:15 O2 Sat by Pulse Oximetry (%) 100 01/10/19 18:15 Constitutional: Yes: Well Nourished, No Distress, Calm Eyes: Yes: WNL, Conjunctiva Clear, EOM Intact HENT: Yes: WNL, Atraumatic, Normocephalic Neck: Yes: WNL, Supple, Trachea Midline Cardiovascular: Yes: WNL, Regular Rate and Rhythm Breast(s): Yes: WNL - Abdominal Exam/OB Fundal Height: 38 Number of Fetuses: Single Presentation: Vertex Heart Rate Location: [facility] - Vaginal Exam/OB Vaginal Bleediing: Bloody Show Dilatation (cm): full Amniotic Membrane Status: Ruptured Amniotic Fluid: Yes: Clear Presentation: Vertex/Position Station: +3 - Physical Exam Extremities: Yes: WNL Edema: LLE: Trace, RLE: Trace Deep Tendon Reflex Grade: Normal +2 Hemorrhage Risk Assessment - Risk Factors Medium Risk Factors: Yes: None High Risk Factors: Yes: None Risk Score: 1 Risk Level: Medium Risk Problem List - Problems (1) with 39 completed weeks gestation Code(s): Z3A.39 - 39 WEEKS GESTATION OF (2) Labor established Code(s): VJB4691 - Assessment/Plan vaginal delivery
[2019-01-10 19:14] LABS: BASO % 0.1 % (0-2.0); HEMATOCRIT 43.7 % (32.4-45.2); HEMOGLOBIN 14.4 GM/dL (10.7-15.3); LYMPH % 3.7 % (8-40); MCH 29.5 pg (25.7-33.7); MCHC 32.8 g/dl (32.0-36.0); MEAN CELL VOLUME 89.8 fl (80-96); MEAN PLT VOLUME 7.9 fl (7.5-11.1); MONO % 2.8 % (3.8-10.2); NEUT % 93.4 % (42.8-82.8); PLATELET COUNT 229 K/MM3 (134-434); RBC 4.87 M/mm3 (3.60-5.2); RDW 14.7 % (11.6-15.6); WHITE BLOOD COUNT 15.3 K/mm3 (4.0-10.0)
[2019-01-10 19:47] LABS: INR 0.97 (0.83-1.09); PROTHROMBIN TIME (PATIENT) 11.5 SEC (9.7-13.0)
[2019-01-10 19:49] LABS: ANION GAP 8 MMOL/L (8-16); BLOOD UREA NITROGEN 10 mg/dL (7-18); CHLORIDE 108 mmol/L (98-107); CO2 19 mmol/L (21-32); CREATININE 0.7 mg/dL (0.55-1.3); GLUCOSE,RANDOM 111 mg/dL (74-106); POTASSIUM 5.1 mmol/L (3.5-5.1); SODIUM 135 mmol/L (136-145)
[2019-01-10 19:50] LABS: ACTIVATED PTT 28.6 SECONDS (25.2-36.5)
[2019-01-10] MEDS: FERROUS SO4 325 MG TABLET (FP) PO SCH (21:32)
[2019-01-11 06:43] LABS: BASO % 0.4 % (0-2.0); EOS % 0.4 % (0-4.5); HEMATOCRIT 40.8 % (32.4-45.2); HEMOGLOBIN 13.8 GM/dL (10.7-15.3); LYMPH % 13.9 % (8-40); MCH 29.5 pg (25.7-33.7); MCHC 33.8 g/dl (32.0-36.0); MEAN CELL VOLUME 87.2 fl (80-96); MEAN PLT VOLUME 7.7 fl (7.5-11.1); MONO % 9.5 % (3.8-10.2); NEUT % 75.8 % (42.8-82.8); PLATELET COUNT 221 K/MM3 (134-434); RBC 4.68 M/mm3 (3.60-5.2); RDW 14.5 % (11.6-15.6); WHITE BLOOD COUNT 10.1 K/mm3 (4.0-10.0)
[2019-01-11] MEDS: FERROUS SO4 325 MG TABLET (FP) PO SCH ×2 (09:22→21:39)
[2019-01-11] MEDS: PRENATAL VITAMINS W/ FOLIC ACID TABLET (FP) PO SCH (09:22)
[2019-01-11] MEDS ORDERED: SENNOSIDES/DOCUSATE COMBO (SENNA PLUS) TABLET (UD) PO PRN (22:00)
--- NOTE | 2019-01-12 08:32 | PN ---
Post Progress Note - Subjective Subjective: Doing well. Type of Delivery: Vital Signs: Vital Signs Temperature 97.6 F 01/11/19 22:00 Pulse Rate 89 01/11/19 22:00 Respiratory Rate 18 01/11/19 22:00 Blood Pressure 116/62 01/11/19 22:00 O2 Sat by Pulse Oximetry (%) 100 01/10/19 18:30 Incision: Yes: Dressing dry and intact Abdomen/GI: Yes: Abdomen soft Lochia: Yes: Rubra Lochia, amount: Small Extremities: Yes: Calves non-tender Perineum: Yes: Intact Activity: Ambulating - Labs Labs: CBC WBC 10.1 K/mm3 (4.0-10.0) H 01/11/19 06:30 RBC 4.68 M/mm3 (3.60-5.2) 01/11/19 06:30 Hgb 13.8 GM/dL (10.7-15.3) 01/11/19 06:30 Hct 40.8 % (32.4-45.2) 01/11/19 06:30 MCV 87.2 fl (80-96) 01/11/19 06:30 MCH 29.5 pg (25.7-33.7) 01/11/19 06:30 MCHC 33.8 g/dl (32.0-36.0) 01/11/19 06:30 RDW 14.5 % (11.6-15.6) 01/11/19 06:30 Plt Count 221 K/MM3 (134-434) 01/11/19 06:30 MPV 7.7 fl (7.5-11.1) 01/11/19 06:30 Absolute Neuts (auto) 7.7 K/mm3 (1.5-8.0) 01/11/19 06:30 Total Counted 100 01/10/19 18:45 Neutrophils % 75.8 % (42.8-82.8) 01/11/19 06:30 Neutrophils % (Manual) 85.0 % (42.8-82.8) H 01/10/19 18:45 Band Neutrophils % 5.0 % 01/10/19 18:45 Lymphocytes % 13.9 % (8-40) D 01/11/19 06:30 Lymphocytes % (Manual) 8.0 % (8-40) 01/10/19 18:45 Monocytes % 9.5 % (3.8-10.2) D 01/11/19 06:30 Monocytes % (Manual) 2 % (3.8-10.2) L 01/10/19 18:45 Eosinophils % 0.4 % (0-4.5) D 01/11/19 06:30 Basophils % 0.4 % (0-2.0) D 01/11/19 06:30 Nucleated RBC % 0 % (0-0) 01/11/19 06:30 Assessment/Plan 33yo s/p , PPD#2 Routine PP care OOB, ambulate Labs reviewed D/C to home today Meghana Lucas MD
[2019-01-12 09:09] VITALS: BP 119/61; PULSE 82; TEMP 98.2
[2019-01-12] MEDS: FERROUS SO4 325 MG TABLET (FP) PO SCH (09:59)
[2019-01-12] MEDS: PRENATAL VITAMINS W/ FOLIC ACID TABLET (FP) PO SCH (09:59)
--- NOTE | 2019-01-13 14:58 | DS ---
Physical Exam-STAFF READINESS OFFICER Vital Signs: Vital Signs Temperature 98.2 F 01/12/19 09:05 Pulse Rate 82 01/12/19 09:05 Respiratory Rate 20 01/12/19 09:05 Blood Pressure 119/61 01/12/19 09:05 O2 Sat by Pulse Oximetry (%) 100 01/10/19 18:30 Constitutional: Yes: Well Nourished, No Distress, Calm Eyes: Yes: WNL, Conjunctiva Clear, EOM Intact HENT: Yes: WNL, Atraumatic, Normocephalic Neck: Yes: WNL, Supple, Trachea Midline Cardiovascular: Yes: WNL, Regular Rate and Rhythm Respiratory: Yes: WNL, Regular, CTA Bilaterally Gastrointestinal: Yes: WNL ...Rectal Exam: Yes: WNL Renal/: Yes: WNL ....Post : Yes: Uterus firm, Uterus non-tender, Slight lochia rubra Breast(s): Yes: WNL Musculoskeletal: Yes: WNL Extremities: Yes: WNL Integumentary: Yes: WNL Neurological: Yes: WNL, Alert, Oriented ...Motor Strength: WNL Psychiatric: Yes: WNL, Alert, Oriented Labs: CBC, BMP 01/11/19 06:30 01/10/19 18:45 Delivery - Delivery Vaginal Delivery: Spontaneous Type of Anesthesia: Local Episiotomy/Laceration: Perineal Extension/lac, 2nd degree EBL (cc): 500 Delivery, Single - Stages of Labor Date 1st Stage Initiatied: 01/10/19 Time 1st Stage Initiated: 13:30 Date 2nd Stage Initiated: 01/10/19 Time 2nd Stage Initiated: 19:20 Date of Delivery: 01/10/19 Time of Delivery: 19:20 Time Placenta Delivered: 19:25 Placenta: Yes: Spontaneous - Condition of Concrete Boom Operator/Wrap Knitting Machine Operator Present: No Infant Gender: Male Weight: 8 lb 6 oz Position: Left, OA Total Hours ROM (Hrs/Mins): 6MIN - 1 Minute Total Score: 9 5 Minutes Total Score: 9 - Horatio Feeding Plan Initial Plan: Elected not to breastfeed exclusively throughout hospitalization Discharge Summary Reason For Visit: LABOR Procedures: Principal: Hospital Course: no complication Condition: Stable - Instructions Diet, Activity, Other Instructions: Regular Diet return to clinic in 4-[address] [facility] for appointment. [phone] Referrals: Celia Lucas MD [Staff Physician] - Disposition: HOME - Home Medications Comprehensive Discharge Medication List: Ambulatory Orders Vitamins (Sjr) - 1 tab PO DAILY 12/27/18 Ibuprofen [Motrin -] 600 mg PO QID PRN #28 tablet 01/12/19
== END 2019-01-12 13:35 | disposition home or self-care (01) | DRG 560 ==
LOC: JLDR 17:20 → J3W 19:30
PROVIDERS: ADMIT Obstetrics & Gynecology; ATTEND Obstetrics & Gynecology
PROC: 10E0XZZ Delivery of Products of Conception, External Approach (ICD-10-PCS; principal; 2019-01-10)
PROC: 0KQM0ZZ Repair Perineum Muscle, Open Approach (ICD-10-PCS; 2019-01-10)
DX: O70.1 Second degree perineal laceration during delivery (principal); Z3A.39 39 weeks gestation of pregnancy; Z37.0 Single live birth
CPT/HCPCS: 36415; 59409; 80048; 85025; 85610; 85730; 86593; 86850; 86900; 86901